=== PATIENT | male | born 1945 | race Caucasian/White ===

== ENCOUNTER 2024-05-16 12:06 | Day surgery (SDC) | payer OTHER, SELFPAY ==
--- OUTSIDE RECORDS SUMMARY | 2024-05-09 19:43 | XMS_ITS | Patient Health Record ---
Author Organization [facility] Address [address] [place] [address] Care Team Providers Care Computer Technical Specialist Name Role Phone Lj Barclay P.A-C Primary Care Provider Unav ailable Randall Stiles Unavailable [phone] ALLERGIES No Known Allergies REASON FOR REFERRAL Referring Provider First Name Lj Referring Provider Last Name Deny Referred Organization [facility] Referred Provider Randall Stiles Referred Address [address],[place], [place],[address], Referred Provider Specialty Gastroentero logy General Notes Jocelyn Wright 024 03:55:30 PM EDT > LEFT VOICE MESSAGE ASKING PT IF HE CAN GO [place] [facility] [place]URANCE AND TO REQUEST AN INSURANCE REFERRAL FROM HIS PCP FOR HIS OFFICE APPT WITH DR. STILES ON 01-14-2024, Jocelyn Wright 12/02/2023 11:52:06 AM EDT > pt called and stated he now sees Dr. Lj Barclay. Called [phone] and requested a [facility] referral for his visit with dr stiles . Requested the start date as 12-27-2023 Referral Priority Routine MEDICATIONS Medication SIG (Take, Route, Fr equency, Duration) Notes Start Date End Date Status ZyrTEC Not-Taking IMMUNIZATIONS Vaccine Route Administration Date Status Comme nts Hepatitis B (-19) Unknown 07/28/2007 Administered Hepatitis A (adult) Unknown 02/08/2007 Administered Flu vaccine no Preserv 3 and > Unknown 02/04/2014 Admin istered Hepatitis A (adult) Unknown 02/08/2015 Pending SOCIAL HISTORY Sex Assigned At : Social History Observation Description Sex Assigned At Unknown PROBLEMS Problem Type ICD Code Onset Dates Problem Status W/U Status Risk SNOMED Code Notes Problem Encounter for screening for malignant neoplasm of colon (Z12.11) Active confirmed 405806096 Problem Preprocedural examination (Z01.818) Active confirmed 88074311 Problem History of colon polyps (Z86.010) Active confirmed 741989742 Problem Rectal bleed (K62.5) Active confirmed 48639325 VITAL SIGNS Blood pressure diastolic 00 mm Hg 01/14/2024 Height 73 in 01/14/2024 Blood pressure systolic 00 mm Hg 01/14/2024 Weight 139 lbs 01/14/2024 BMI 18.34 kg/m2 01/14/2024 Encounters Encounter Location Date Provider Diagnosis [facility] [address] [place] [phone] 01/14/2024 Randall Stiles Preprocedural examination Z01.818 ; History of colon polyps Z86.010 and Encounter for screening for malignant neoplasm of colon Z12.11 [facility] [address] [place] [phone] 09/09/2023 Randall Stiles ASSESSMENTS Encounter Date Diagnosis Assessment Notes Treatment Notes Treatment Clinical Notes 01/14/2024 Preprocedural examination (ICD-10 - Z01.818) 01/14/2024 History of colon polyps (ICD-10 - Z86.010) 01/14/2024 Encounter for screening for malignant neoplasm of colon (ICD-10 - Z12.11) PLAN OF TREATMENT Future Test Test Name Order Date COLONOSCOPY 02/08/2015 COLONOSCOPY 01/14/2024 Next Appt Details Provider Name:Randall Stiles , 05/16/2024 12:20:00 PM, [address] [place] [address] , [place], [place], [phone], Insurance Providers Payer Name Payer Address Payer Phone Subscriber Number Group Number Insured Name Patient Relationship to Insured Coverage Start Date Coverage End Date [facility] ([employer] L [employer]) [address] [place] [address] [id number] [employer] Self - patient is the insured MEDICAL (GENERAL) HISTORY Medical History History ICD Code Essential tremor in head Screening colonoscopy with a Tubular adenoma removed in 11/2003--had a negative followup screening colonoscopy in 08/2009 except for diverticulosis and internal hemorrhoids Denies AL,DM,CVA,Lung disease,renal dise ase Colonoscopy in March of 2015 with a S errated adenoma removed Surgical History Surgery Date(Month/Year)
--- OUTSIDE RECORDS SUMMARY | 2024-05-09 19:43 | XMS_ITS ---
Author Organization [facility] Address [address] [place] [phone] Care Team Providers Care Communication Assistant Name Role Phone Lj Barclay P.A-C Primary Care Provider Unav ailable Randall Haq Unavailable [phone] ALLERGIES No Known Allergies REASON FOR VISIT Patient presents today for a colon screening MEDICATIONS Medication SIG (Take, Route, Fr equency, Duration) Notes Start Date End Date Status ZyrTEC Not-Taking VITAL SIGNS BMI 18.34 kg/m2 01/14/2024 Blood pressure systolic 00 mm Hg 01/14/20 24 Blood pressure diastolic 00 mm Hg 024 Height 73 in 01/14/2024 Weight 139 lbs 01/14/2024 Encounters Encounter Location Date Provider Diagnosis [facility] [address] [place] [phone] 01/14/2024 Randall Haq Preprocedural examination Z01.818 ; History of colon polyps Z86.010 and Encounter for screening for malignant neoplasm of colon Z12.11 ASSESSMENTS Encounter Date Diagnosis Assessment Notes Treatment Notes Treatment Clinical Notes 01/14/2024 Preprocedural examination (ICD-10 - Z01.818) 01/14/2024 History of colon polyps (ICD-10 - Z86.010) 01/14/2024 Encounter for screening for malignant neoplasm of colon (ICD-10 - Z12.11) PLAN OF TREATMENT Future Test Test Name Order Date COLONOSCOPY 01/14/2024 Next Appt Details Follow Up: prn, Reason: Provider Name:Randall Haq , 05/16/2024 12:20:00 PM, [address] [place] [address], [phone], Progress Notes * Examination Category Sub-Category Detail Notes General Examination GENERAL APPEARANCE: pleasant , well nourished, well developed, in no acute distress HEAD: EYES: sclera non-icteric EARS: NOSE: THROAT: NECK/THYROID: no cervical lymphade nopathy, neck supple HEART: S1, S2 normal CHEST: LUNGS: clear to auscultatio n bilaterally ABDOMEN: normal bowel sounds, no guarding or rigidity, no guarding or rigidity, no masses palpable, soft, nontender, nondistended NEUROLOGIC: alert and oriented SKIN: nonjaundiced, no spi simone angiomata EXTREMITIES: no edema PERIPHERAL PULSES: BACK: BREASTS: MUSCULOSKELETAL: MALE GENITOURINARY: LYMPH NODES: RECTAL EXAM: FEMALE GENITOURINARY: ORAL CAVITY: mucosa moist
--- OUTSIDE RECORDS SUMMARY | 2024-05-09 19:43 | XMS_ITS ---
Author Organization [facility] Address [address] [place] [phone] Care Team Providers Care Anesthesia Technician Name Role Phone Lj Barclay P.A-C Primary Care Provider Unav ailable Randall Haq Unavailable [phone] REASON FOR VISIT colonoscopy? Encounters Encounter Location Date Provider Diagnosis [facility] [address] [place] [phone] 09/09/2023 Randall Haq PLAN OF TREATMENT Next Appt Details Provider Name:Randall Haq , 05/16/2024 12:20:00 PM, [address] [place] [address] , [place], [place], [phone],
[2024-05-12 13:24] VITALS: BMI 18.3
[2024-05-16 12:36] VITALS: BP 146/72; PULSE 70; RESP 16; TEMP 36.7; O2SAT 98; BMI 17.8
--- NOTE | 2024-05-16 13:45 | P.CONAN_ITS ---
[facility] Past Medical History Medical History (Updated 05/12/24 @ 13:24 by Lucinda Eddy RN) Tubular adenoma of colon Diverticulosis Essential tremor Family History Family history of problems with anesthesia: No Surgical History Surgical History (Updated 05/12/24 @ 13:24 by Lucinda Eddy RN) H/O colonoscopy History of Problems with Anesthesia: No Social History Social History Are you a primary career technical counselor to a significant other at home: No Do you presently have visiting nurse or other home services: No Patient Tobacco Use Status: Former Tobacco user Tobacco use type: Cigarette Smoked in Last 30 Days: No Use of substances other than those prescribed or required for medical reasons: No Have you been hit, kicked, punched, or otherwise hurt by someone within the past year? If so, by whom?: No Are you DNR?: Yes Advance Directives: No Advance Directives Information Provided: Yes (Елена () per patient) Advance Directives on File: No (NOT ON FILE) Recently lost weight without trying: No How much weight loss: Not applicable Eating poorly because of decreased appetite: No Nutrition screen score: 0 Nutrition Risks: No Nutritional Risk Poor oral hygiene: No Meds Allergies Allergy/AdvReac Type Severity Reaction Status Date / Time No Known Allergies Allergy Verified 05/16/24 12:35 Active Medications: Current Medications Naloxone HCl (Naloxone Hcl 0.4 Mg/Ml Vial) 0.04 mg IVPUSH Q5M PRN PRN Reason: Excessive sedation or RR < 8 Sodium Biphosphate/Sodium Phosphate (Sodium Phosphate,[place]-Dibasic 133 Ml Enema) 133 ml MN ONCE PRN PRN Reason: Poor Colonoscopy Prep Results Home Medications ?Medication ?Instructions ?Recorded ?Confirmed ?Last Taken ?Type cetirizine 10 mg tablet 10 mg PO DAILY 05/12/24 05/12/24 Unknown History Exam Height,Weight and Vital Signs: Height 6 ft 1 in Weight 61.326 kg Last Vital Signs Temp 98.0 F 05/16/24 12:36 Pulse 70 05/16/24 12:36 Resp 16 05/16/24 12:36 BP 146/72 H 05/16/24 12:36 Pulse Ox 98 05/16/24 12:36 O2 Del Method Room Air 05/16/24 12:36 Airway Mallampati Class: II (one cap laterally) TM Dist: >3cm Neck ROM: Full Heart: rrr Lungs: cta Assessment and Plan Assessment Anesthesia Assessment: Anesthesia Plan Discussed and Chart Reviewed Final Anesthetic Review Family History of Problems with Anesthesia: No History of Problems with Anesthesia: No NPO: Yes ASA Class: II Final Preanesthetic Review: No Changes in Pt Med Stat, Meds/Allgs Chart Reviewed and Consent Obtained/Reviewed Patient Risk: Low Procedure Risk: Low Anesthetic Plan Anesthetic Plan: MAC: Disposition: Standard PACU
[2024-05-16 15:34] VITALS: BP 162/88; PULSE 89; RESP 16; TEMP 36.3; O2SAT 99
[2024-05-16 15:49] VITALS: BP 149/75; PULSE 64; RESP 18; TEMP 36.1; O2SAT 99
--- NOTE | 2024-05-16 16:11 | P.BOP_ITS ---
Brief Operative Note Date of Service: 05/16/24 Pre-op diagnosis: Screening Post-op diagnosis: other (Diverticulosis) Procedure: Colonoscopy to the cecum Surgeon: Randall Haq MD Anesthesia: MAC Was an Core Assembly Supervisor used for this Procedure?: No Estimated blood loss (mL): 0 Pathology: none sent Condition: stable Disposition: PACU
--- NOTE | 2024-05-16 16:19 | OP_ITS ---
DATE OF SERVICE: 05/16/2024 SURGEON: Randall Haq MD INDICATIONS: The patient presents for evaluation of colorectal cancer screening and personal history of tubular adenoma of the colon and serrated adenoma of the colon. Full consent was obtained from him for this, including risks of bleeding and perforation. PREOPERATIVE DIAGNOSIS: POSTOPERATIVE DIAGNOSIS: PROCEDURE PERFORMED: Colonoscopy to the cecum. ESTIMATED BLOOD LOSS: COMPLICATIONS: ANESTHESIA: Medication used, monitored anesthesia care. ASSISTANTS: SPECIMENS: PREOPERATIVE DIAGNOSES: Colorectal cancer screening, personal history of tubular adenoma and serrated adenoma of the colon. POSTOPERATIVE DIAGNOSES: Colorectal cancer screening, personal history of tubular adenoma and serrated adenoma of the colon, diverticulosis, and internal hemorrhoids. DESCRIPTION OF PROCEDURE: The digital rectal exam revealed no abnormalities. The Olympus video pediatric colonoscope was entered into the rectum advanced easily to the cecum. Once in the cecum, I did identify normal-appearing cecal pouch with appendiceal orifice and a normal-appearing ileocecal valve. The entire cecum and ileocecal valve appeared normal, including the appendiceal orifice. There was transillumination of light deep in the right lower quadrant. The scope was slowly withdrawn assessing all mucosal surfaces carefully. Preparation was excellent. I did not visualize any sign of polyps, colitis, nor angiodysplasia. There was a moderate amount of sigmoid diverticulosis. In the rectum, scope was retroflexed visualizing internal hemorrhoids, but no other pathology. The rectal mucosa appeared normal. The scope was straightened and withdrawn from the patient. He tolerated the procedure well and was returned to the recovery area in stable condition. IMPRESSION: 1. Diverticulosis. 2. Internal hemorrhoids. PLAN: Given his negative exam and his age, I do not think he would need any further screening colonoscopies. He will otherwise see me on a p.r.n. basis. This has been discussed with his . MD SALBADOR Del Toro/BRUCE / [id number]
== END 2024-05-16 16:09 | disposition home or self-care (01) ==
PROVIDERS: PCP Internal Medicine; Visit Provider Internal Medicine
PROC: 0DJD8ZZ Inspection of Lower Intestinal Tract, Via Natural or Artificial Opening Endoscopic (ICD-10-PCS; CPT 45378; principal; 2024-05-16 13:00)
DX: Z12.11 Encounter for screening for malignant neoplasm of colon (principal); Z86.0101 Personal history of adenomatous and serrated colon polyps; K57.30 Diverticulosis of large intestine without perforation or abscess without bleeding; K64.8 Other hemorrhoids; G25.0 Essential tremor; Z79.899 Other long term (current) drug therapy; Z66 Do not resuscitate; Z87.891 Personal history of nicotine dependence
CPT/HCPCS: G0105; J2003; J2704